=== PATIENT | female | born 1930 | race Caucasian/White ===

== ENCOUNTER 2017-02-10 16:17 | Inpatient (IN) | payer MEDICARE ==
[2017-02-10 17:47] LABS: Anisocytosis Slight; Basophils % (A) 0 %; CH 23.2; CHCM 28.7; Eosinophils # (A) 0.1 k/uL (0-0.7); Eosinophils % (A) 1 %; HCT 23.5 % (34.0-46.0); HDW 4.75; Hypochromasia Marked; Luc # (Auto) 0.19; Luc % (Auto) 2; Lymphocytes # (A) 1.1 k/uL (1.0-4.8); Lymphocytes % (A) 12 %; MCH 23.5 pg (25.0-35.0); MCV 80.6 fL (80.0-100.0); Mean Platelet Volume 9.4; Monocytes # (A) 1.1 k/uL (0-1.0); Monocytes % (A) 11 %; Neutrophils # (A) 6.9 k/uL (1.3-7.7); Neutrophils % (A) 74 %; Poikilocytosis Marked; RBC 2.92 m/uL (3.80-5.40); RDW 17.1 % (11.5-15.5); WBC 9.3 k/uL (3.8-10.6); WBC (Perox) 8.92
[2017-02-10 17:55] LABS: HGB 6.9 gm/dL (11.4-16.0); MCHC 29.2 g/dL (31.0-37.0)
[2017-02-10 18:03] LABS: Calcium 9.9 mg/dL (8.4-10.2)
[2017-02-10] MEDS ORDERED: ONDANSETRON 4 MG/2 ML VIAL IVP PRN (19:49)
[2017-02-10] MEDS ORDERED: NALOXONE 0.4 MG/ML 1 ML VIAL IV PRN (19:49)
[2017-02-10] MEDS ORDERED: DEXTROSE 5%-0.45% NACL 1,000 ML IV SCH (20:00)
--- NOTE | 2017-02-10 20:00 | ED ---
General Adult HPI - General Chief complaint: GI Bleed Stated complaint: GI Bleed Time Seen by Provider: 02/10/17 16:21 Source: patient, family, RN notes reviewed, old records reviewed Mode of arrival: EMS - History of Present Illness Initial comments: 86-year-old female presenting as a transfer from an outside hospital. Patient was found to be anemic with hemoglobin of 5.7 and Hemoccult positive. She does have history of A. fib and is currently on our requests. Patient was transferred for GI evaluation. Patient's initial complaint that brought her to the hospital was a fall with chest pain. Her son was helping her up from the bathroom floor and injured her anterior chest. X-rays obtained did not show any acute bony abnormality. Patient states she has noticed some dark stool over the last several days to week. Denies any other complaints. Denies typical chest pain, denies nausea vomiting or diarrhea. Has past medical history of dementia, hypertension and previous stroke. - Related Data Home Medications Medication Instructions Recorded Confirmed Amiodarone [Cordarone] 200 mg PO DAILY 02/10/17 02/10/17 Apixaban [Eliquis] 5 mg PO BID 02/10/17 02/10/17 Aspirin EC [Ecotrin Low Dose] 81 mg PO DAILY 02/10/17 02/10/17 Docusate [Colace] 100 mg PO DAILY PRN 02/10/17 02/10/17 Donepezil [Aricept] 5 mg PO HS 02/10/17 02/10/17 FLUoxetine HCL [PROzac] 10 mg PO DAILY 02/10/17 02/10/17 Levothyroxine Sodium [Synthroid] 50 mcg PO DAILY 02/10/17 02/10/17 Lisinopril-Hctz 20-12.5 mg 1 tab PO DAILY 02/10/17 02/10/17 [Zestoretic 20-12.5] Multivitamins, Thera [Multivitamin 1 tab PO DAILY 02/10/17 02/10/17 (formulary)] Propranolol (Unknown Dose) 1 tab PO BID 02/10/17 02/10/17 Topiramate [Topamax] 25 mg PO BID 02/10/17 02/10/17 metFORMIN HCL [Glucophage] 500 mg PO DAILY 02/10/17 02/10/17 Allergies Allergy/AdvReac Type Severity Reaction Status Date / Time No Known Allergies Allergy Verified 02/10/17 17:33 Review of Systems ROS Statement: Those systems with pertinent positive or pertinent negative responses have been documented in the HPI. ROS Other: All systems not noted in ROS Statement are negative. Past Medical History Past Medical History: Atrial Fibrillation, Coronary Artery Disease (CAD), Chest Pain / Angina, CVA/TIA, Diabetes Mellitus, Hypertension, Thyroid Disorder History of Any Multi-Drug Resistant Organisms: None Reported Past Psychological History: Depression Smoking Status: Never smoker Past Alcohol Use History: None Reported Past Drug Use History: None Reported General Exam General appearance: alert, in no apparent distress Head exam: Present: atraumatic, normocephalic Eye exam: Present: normal appearance, PERRL, EOMI ENT exam: Present: normal exam, mucous membranes moist Neck exam: Present: normal inspection Respiratory exam: Present: normal lung sounds bilaterally, rales. Absent: respiratory distress Cardiovascular Exam: Present: regular rate, normal rhythm GI/Abdominal exam: Present: soft. Absent: distended, tenderness Extremities exam: Present: normal capillary refill, pedal edema Neurological exam: Present: alert Psychiatric exam: Present: normal affect, normal mood Skin exam: Present: warm, dry Course Vital Signs 02/10/17 02/10/17 02/10/17 16:28 17:36 18:36 Temperature 97.0 F L Pulse Rate 53 L 52 L 52 L Respiratory 20 20 20 Rate Blood Pressure 130/73 187/77 137/69 O2 Sat by Pulse 99 98 97 Oximetry 02/10/17 19:19 Temperature Pulse Rate 54 L Respiratory 14 Rate Blood Pressure 145/65 O2 Sat by Pulse 92 L Oximetry Medical Decision Making - Medical Decision Making 86-year-old female presenting us transfer from an outside hospital with anemia hemoglobin 5.7. Patient received 1 unit prior to arrival. She is on adequate is for A. fib and stroke prophylaxis. Her vital signs have remained stable both in transport and from outside facility. Repeat labs reveal hemoglobin 6.9. Patient will receive an additional 1 unit of packed RBCs. Other laboratory studies reviewed from transferring facility were unremarkable. Patient is started on Protonix. She will be admitted for anemia and GI bleed. - Lab Data Result diagrams: 02/10/17 17:30 02/10/17 17:30 Lab Results 02/10/17 02/10/17 02/10/17 Range/Units 17:30 17:30 17:30 WBC 9.3 (3.8-10.6) k/uL RBC 2.92 L (3.80-5.40) m/uL Hgb 6.9 L* (11.4-16.0) gm/dL Hct 23.5 L (34.0-46.0) % MCV 80.6 (80.0-100.0) fL MCH 23.5 L (25.0-35.0) pg MCHC 29.2 L (31.0-37.0) g/dL RDW 17.1 H (11.5-15.5) % Plt Count 193 (150-450) k/uL Neutrophils % 74 % Lymphocytes % 12 % Monocytes % 11 % Eosinophils % 1 % Basophils % 0 % Neutrophils # 6.9 (1.3-7.7) k/uL Lymphocytes # 1.1 (1.0-4.8) k/uL Monocytes # 1.1 H (0-1.0) k/uL Eosinophils # 0.1 (0-0.7) k/uL Basophils # 0.0 (0-0.2) k/uL Hypochromasia Marked Poikilocytosis Marked Anisocytosis Slight Sodium 142 (137-145) mmol/L Potassium 4.0 (3.5-5.1) mmol/L Chloride 106 (98-107) mmol/L Carbon Dioxide 25 (22-30) mmol/L Anion Gap 11 mmol/L BUN 41 H (7-17) mg/dL Creatinine 1.80 H (0.52-1.04) mg/dL Est GFR (MDRD) Af Amer 32 (>60 ml/min/1.73 sqM) Est GFR (MDRD) Non-Af 27 (>60 ml/min/1.73 sqM) Glucose 120 H (74-99) mg/dL Calcium 9.9 (8.4-10.2) mg/dL Blood Type A Negative Blood Type Recheck CABO Indicated Antibody Screen NEGATIVE Crossmatch See Detail Spec Expiration Date 02/13/2017 - 2329 Disposition Clinical Impression: Melena, Upper gastrointestinal hemorrhage Disposition: ADMITTED IP TO THIS [facility] Condition: Stable Referrals: Manfred Gandara DO [Primary Care Provider] - 1-2 days Decision to Admit Reason: Admit from EC Decision Date: 02/10/17 Decision Time: 19:00
[2017-02-10 23:01] VITALS: BMI 35.4
[2017-02-10] MEDS ORDERED: MELATONIN 5 MG TABLET PO PRN (23:16)
[2017-02-11 06:09] LABS: Anisocytosis Slight; Basophils % (A) 1 %; CH 23.7; CHCM 29.1; Eosinophils # (A) 0.1 k/uL (0-0.7); Eosinophils % (A) 1 %; HDW 5.61; HGB 7.4 gm/dL (11.4-16.0); Hypochromasia Marked; Luc # (Auto) 0.27; Luc % (Auto) 4; Lymphocytes % (A) 14 %; MCH 24.1 pg (25.0-35.0); MCHC 29.6 g/dL (31.0-37.0); MCV 81.5 fL (80.0-100.0); Mean Platelet Volume 8.2; Monocytes # (A) 0.9 k/uL (0-1.0); Monocytes % (A) 13 %; Neutrophils % (A) 68 %; Poikilocytosis Marked; RBC 3.07 m/uL (3.80-5.40); RDW 16.1 % (11.5-15.5); WBC 7.3 k/uL (3.8-10.6); WBC (Perox) 7.33
[2017-02-11 06:19] LABS: INR 1.3 (<1.1); Prothrombin Time 12.6 sec (9.0-12.0)
[2017-02-11] MEDS: LEVOTHYROXINE 50 MCG TAB PO SCH ×2 (06:22→06:39)
[2017-02-11 06:24] LABS: Calcium 9.5 mg/dL (8.4-10.2); Potassium 3.9 mmol/L (3.5-5.1)
[2017-02-11] MEDS: LISINOPRIL-HCTZ 20-12.5 MG 1 EACH TAB PO SCH (08:12)
[2017-02-11] MEDS: AMIODARONE 200 MG TAB PO SCH (08:13)
[2017-02-11] MEDS: PANTOPRAZOLE 40 MG/10 ML VIAL IVP SCH (08:13)
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
[2017-02-12] MEDS: LEVOTHYROXINE 50 MCG TAB PO SCH (05:58)
[2017-02-12 06:33] LABS: Anisocytosis Slight; Basophils % (A) 0 %; CH 23.5; Eosinophils # (A) 0.1 k/uL (0-0.7); Eosinophils % (A) 1 %; HCT 26.1 % (34.0-46.0); HDW 5.39; HGB 7.8 gm/dL (11.4-16.0); Hypochromasia Marked; Luc # (Auto) 0.23; Luc % (Auto) 3; Lymphocytes % (A) 13 %; MCH 24.2 pg (25.0-35.0); MCHC 29.9 g/dL (31.0-37.0); MCV 81.1 fL (80.0-100.0); Mean Platelet Volume 9.1; Monocytes # (A) 0.9 k/uL (0-1.0); Monocytes % (A) 12 %; Neutrophils # (A) 5.6 k/uL (1.3-7.7); Neutrophils % (A) 71 %; Poikilocytosis Marked; RBC 3.22 m/uL (3.80-5.40); RDW 16.9 % (11.5-15.5); WBC 7.9 k/uL (3.8-10.6); WBC (Perox) 8.51
[2017-02-12 06:40] LABS: Calcium 9.3 mg/dL (8.4-10.2); Potassium 3.7 mmol/L (3.5-5.1); Total Bilirubin 1.5 mg/dL (0.2-1.3); Total Protein 5.7 g/dL (6.3-8.2)
[2017-02-12] MEDS: LISINOPRIL-HCTZ 20-12.5 MG 1 EACH TAB PO SCH (08:53)
[2017-02-12] MEDS: AMIODARONE 200 MG TAB PO SCH (08:53)
[2017-02-12] MEDS: PANTOPRAZOLE 40 MG/10 ML VIAL IVP SCH (08:53)
--- NOTE | 2017-02-12 09:05 | P.PN ---
Subjective Principal diagnosis: Anemia black colored bowel movements 86-year-old female transferred from another facility with anemia and blood in her bowel movements. No recurrent rectal bleeding. Denies abdominal pain. Antiplatelet medications on hold for history of atrial fibrillation. Hemoglobin 7.8 this morning. Received 1 unit of blood since admission. Objective - Vital Signs Vital signs: Vital Signs Temp 97.8 F 02/12/17 08:00 Pulse 52 L 02/12/17 08:00 Resp 18 02/12/17 08:00 BP 121/53 02/12/17 08:00 Pulse Ox 93 L 02/12/17 08:00 Intake & Output 02/11/17 02/12/17 02/12/17 18:59 06:59 18:59 Output Total 500 650 Balance -500 -650 Weight 91 kg 93.6 kg 93.6 kg Output: Urine 500 650 Other: Voiding Method Bedpan Bedpan Bedpan # Voids 1 1 - Exam General appearance: The patient is alert, oriented, in no acute distress. HET: Head is normocephalic and atraumatic. Pupils are equal and reactive. Oropharynx is clear without lesions. Neck: Supple without lymphadenopathy. Trachea midline. Heart: S1 S2. Regular rate and rhythm. Lungs: No crackles or wheezes are heard. Abdomen: Soft, nontender, nondistended with bowel sounds. No peritoneal signs. No palpable organomegaly or masses. Extremities: Normal skin color and turgor. No cyanosis, rash, ulceration, clubbing, or edema. Radial and pedal pulses are 2/4 bilaterally. Neurological: No focal deficits. Strength and sensation are grossly intact. - Labs CBC & Chem 7: 02/12/17 06:11 02/12/17 06:08 Labs: Abnormal Lab Results - Last 24 Hours (Table) 02/12/17 02/12/17 Range/Units 06:08 06:11 RBC 3.22 L (3.80-5.40) m/uL Hgb 7.8 L (11.4-16.0) gm/dL Hct 26.1 L (34.0-46.0) % MCH 24.2 L (25.0-35.0) pg MCHC 29.9 L (31.0-37.0) g/dL RDW 16.9 H (11.5-15.5) % Chloride 108 H (98-107) mmol/L BUN 35 H (7-17) mg/dL Creatinine 1.52 H (0.52-1.04) mg/dL Glucose 114 H (74-99) mg/dL Total Bilirubin 1.5 H (0.2-1.3) mg/dL Total Protein 5.7 L (6.3-8.2) g/dL Albumin 2.9 L (3.5-5.0) g/dL Assessment and Plan (1) Acute blood loss anemia Status: Acute (2) Melena Status: Acute (3) GI bleed Status: Acute Plan: 1. EGD colonoscopy scheduled tomorrow. 2. Clear liquid diet today. Nothing by mouth after midnight. 3. GI prophylaxis. Protonix 40 mg IV daily. Monitor CBC. The mason liner has discussed the risks, benefits and alternative therapies for the above-mentioned procedure and for both sedation/analgesia as well as necessary blood product administration, if indicated, as they pertain to this patient. The patient has indicated understanding and acceptance of the risks and procedures discussed. Assessment and plan of care discussed with Dr. Osorio
[2017-02-12] MEDS ORDERED: PEG 3350-NA SULF,BICARB,CL/KCL 4,000 ML BOTTLE PO ONE (15:00)
--- NOTE | 2017-02-12 16:09 | P.PN ---
Subjective 86-year-old female with history of atrial fibrillation currently maintained on anticoagulation was done the hospital with suspicion for GI bleed. Patient was noted to have Hemoccult-positive Patient states that she is normally able to ambulate with help. However has been laying in bed for the last 2 days Denies having any abdominal pain. Denies having any blurry vision ooziness chest pain difficulty breathing at this time Denies having a previous history of GI bleed. However patient has a hard time recalling some of her past medical history Patient also gets tearful that there is no hope for her life Patient was given a unit of PRBC repeat hemoglobin is greater than 7 g per DL No previous baseline hemoglobin is noted in our system. Patient is transferred from another facility 02/12/2017 Was able to be out of bed and ambulate to the restroom Denies having dizziness chest pain bloody bowel movements Objective - Vital Signs Vital signs: Vital Signs Temp 97.8 F 02/12/17 12:00 Pulse 50 L 02/12/17 12:00 Resp 16 02/12/17 12:00 BP 123/56 02/12/17 12:00 Pulse Ox 96 02/12/17 12:00 Intake & Output 02/11/17 02/12/17 02/12/17 18:59 06:59 18:59 Intake Total 120 Output Total 500 650 600 Balance -500 -650 -480 Weight 91 kg 93.6 kg 93.6 kg Intake: Oral 120 Output: Urine 500 650 600 Other: Voiding Method Bedpan Bedpan Bedpan # Voids 1 1 # Bowel Movements 0 - Exam Physical exam Gen. appearance oriented 3 in no distress Neck is supple no JVD Lungs good air entry clear to auscultation no rhonchi or wheezing Heart S1-S2 heard regular rate and rhythm no murmurs appreciated Abdomen is soft nontender no organomegaly bowel sounds are intact Neurologically cranial nerves II-12 grossly intact no focal motor or sensory deficits noted Resting tremor is appreciated Skin no abnormalities appreciated - Labs CBC & Chem 7: 02/12/17 06:11 02/12/17 06:08 Labs: Abnormal Lab Results - Last 24 Hours (Table) 02/12/17 02/12/17 Range/Units 06:08 06:11 RBC 3.22 L (3.80-5.40) m/uL Hgb 7.8 L (11.4-16.0) gm/dL Hct 26.1 L (34.0-46.0) % MCH 24.2 L (25.0-35.0) pg MCHC 29.9 L (31.0-37.0) g/dL RDW 16.9 H (11.5-15.5) % Chloride 108 H (98-107) mmol/L BUN 35 H (7-17) mg/dL Creatinine 1.52 H (0.52-1.04) mg/dL Glucose 114 H (74-99) mg/dL Total Bilirubin 1.5 H (0.2-1.3) mg/dL Total Protein 5.7 L (6.3-8.2) g/dL Albumin 2.9 L (3.5-5.0) g/dL Assessment and Plan Plan: 1 acute GI bleed in the patient on anticoagulation #2 history of atrial fibrillation #3 hypertension #4 dyslipidemia #5 acute kidney injury likely due to volume loss #6 parkinsonism features #7 depression #8 hypothyroidism #9 diabetes mellitus type 2 Plan Continue monitoring hemoglobin Patient had a bleed on apixiban To undergo endoscopy in the next 24 hours discussed with the patient to be discharged only on aspirin as patient does require significant assistance with ambulation at rest is a high risk for fall the risks of patient being on anticoagulation are higher than benefits of preventing a stroke with advanced age
[2017-02-13] MEDS: LEVOTHYROXINE 50 MCG TAB PO SCH ×2 (06:27→06:30)
[2017-02-13 06:37] LABS: Anisocytosis Slight; Basophils % (A) 0 %; CH 23.2; CHCM 29.2; Eosinophils # (A) 0.1 k/uL (0-0.7); Eosinophils % (A) 1 %; HDW 5.18; HGB 7.6 gm/dL (11.4-16.0); Hypochromasia Marked; Luc # (Auto) 0.24; Luc % (Auto) 3; Lymphocytes # (A) 0.9 k/uL (1.0-4.8); Lymphocytes % (A) 12 %; MCH 24.3 pg (25.0-35.0); MCHC 30.5 g/dL (31.0-37.0); MCV 79.6 fL (80.0-100.0); Monocytes # (A) 0.9 k/uL (0-1.0); Monocytes % (A) 12 %; Neutrophils # (A) 5.4 k/uL (1.3-7.7); Neutrophils % (A) 71 %; Poikilocytosis Marked; RBC 3.14 m/uL (3.80-5.40); RDW 17.5 % (11.5-15.5); WBC 7.6 k/uL (3.8-10.6); WBC (Perox) 7.76
[2017-02-13] MEDS ORDERED: PROPOFOL 10 MG/ML 20 ML VIAL IV ONE (09:31)
[2017-02-13] MEDS ORDERED: LACTATED RINGERS 1,000 ML IV ONE (09:34)
--- NOTE | 2017-02-13 10:12 | P.PCN ---
Date of Procedure: 02/13/17 Preoperative Diagnosis: Postoperative Diagnosis: Procedure(s) Performed: Procedure: 1. Esophagogastroduodenoscopy. 2. Colonoscopy and polypectomy. Preoperative diagnosis: GI bleeding. Postoperative diagnosis: 1. Hiatal hernia with no obvious esophagitis or complicated reflux disease. 2. No ulcers or potential sources of bleeding in the upper GI exam. 3. Mild sigmoid diverticulosis with no evidence of acute diverticulitis or strictures. 4. Small sigmoid polyp snared but no large polyps or cancer. 5. Low-grade internal hemorrhoids not bleeding at the time of this exam. Preparation: GoLYTELY prep. Sedation: Was provided by anesthesia. Brief clinical history: The patient is an 86-year old female who was transferrred from another hospital because of anemia and finding of blood in her stools. Was taken there by her son after a fall. Patient has history of Atrial fibrillation on eliquis. Has received 1 unit of packed RBCs that brought her Hb to around 7. Apparently has been having dark stools for few days, almost 1 week. No abdominal symptoms or UGI complaints. This evaluation is to assess for a source of bleeding. The details are summarized in the history and physical and dictated consultation. Procedure: With the patient on her left lateral decubitus position and after informed consent and adequate sedation, I passed the Olympus-GIF 160 video upper endoscope through the cricopharyngeus down the esophagus. GE junction was around 32 cm from the incisors. There was a hiatal hernia with sliding and paraesophageal component. The esophagus did not show any obvious esophagitis or complicated reflux disease. The endoscope was then passed into the stomach which was insufflated with air and inspected in detail including the retroflex view in the cardia. No obvious abnormalities were seen. Pyloric channel, duodenal bulb, post bulbar area and descending duodenum appeared within normal limits. There was no evidence of bleeding on the examination then the endoscope was withdrawn and I proceeded with the colonoscopy. Perianal area did not show any fissures or fistulas. There were no masses felt on digital rectal examination. The Olympus CFQ 160L video colonoscope was then inserted in the rectum in the usual fashion and advanced to the cecum. There was mild sigmoid diverticulosis with no evidence of acute diverticulitis or strictures. A small sigmoid polyp was seen and was snared and retrieved by suction but there were no large polyps or cancer. I retroflexed the endoscope in the rectum before the endoscope was withdrawn. Low-grade internal hemorrhoids were noted with no evidence of bleeding. The patient tolerated the procedure well. Plan: The patient was reassured. Will allow regular diet. Further plans can be made based on her course. I see no contraindication to resuming her anticoagulation based on the findings on this exam. Implants: Indications for Procedure: Operative Findings: Description of Procedure:
[2017-02-13] MEDS: LISINOPRIL-HCTZ 20-12.5 MG 1 EACH TAB PO SCH (12:11)
[2017-02-13] MEDS: AMIODARONE 200 MG TAB PO SCH (12:11)
[2017-02-13] MEDS: PANTOPRAZOLE 40 MG/10 ML VIAL IVP SCH (12:12)
--- NOTE | 2017-02-13 16:00 | P.PN ---
Subjective 86-year-old female with history of atrial fibrillation currently maintained on anticoagulation was done the hospital with suspicion for GI bleed. Patient was noted to have Hemoccult-positive Patient states that she is normally able to ambulate with help. However has been laying in bed for the last 2 days Denies having any abdominal pain. Denies having any blurry vision ooziness chest pain difficulty breathing at this time Denies having a previous history of GI bleed. However patient has a hard time recalling some of her past medical history Patient also gets tearful that there is no hope for her life Patient was given a unit of PRBC repeat hemoglobin is greater than 7 g per DL No previous baseline hemoglobin is noted in our system. Patient is transferred from another facility 02/12/2017 Was able to be out of bed and ambulate to the restroom Denies having dizziness chest pain bloody bowel movements 02/13/2017 Patient was seen status post EGD colonoscopy. Denies having any headaches blurry vision dizziness chest pain Objective - Vital Signs Vital signs: Vital Signs Temp 97.6 F 02/13/17 11:26 Pulse 56 L 02/13/17 11:26 Resp 20 02/13/17 11:26 BP 129/54 02/13/17 11:26 Pulse Ox 94 L 02/13/17 11:26 Intake & Output 02/12/17 02/13/17 02/13/17 18:59 06:59 18:59 Intake Total 120 840 590 Output Total 1200 Balance -1080 840 590 Weight 93.6 kg 88.6 kg Intake: IV 500 Oral 120 840 90 Output: Urine 1200 Other: Voiding Method Bedpan Bedside Commode # Voids 1 1 # Bowel Movements 0 1 - Exam Physical exam Gen. appearance oriented 3 in no distress Neck is supple no JVD Lungs good air entry clear to auscultation no rhonchi or wheezing Heart S1-S2 heard regular rate and rhythm no murmurs appreciated Abdomen is soft nontender no organomegaly bowel sounds are intact Neurologically cranial nerves II-12 grossly intact no focal motor or sensory deficits noted Resting tremor is appreciated Skin no abnormalities appreciated - Labs CBC & Chem 7: 02/13/17 05:58 02/12/17 06:08 Labs: Abnormal Lab Results - Last 24 Hours (Table) 02/13/17 Range/Units 05:58 RBC 3.14 L (3.80-5.40) m/uL Hgb 7.6 L (11.4-16.0) gm/dL Hct 25.0 L (34.0-46.0) % MCV 79.6 L (80.0-100.0) fL MCH 24.3 L (25.0-35.0) pg MCHC 30.5 L (31.0-37.0) g/dL RDW 17.5 H (11.5-15.5) % Lymphocytes # 0.9 L (1.0-4.8) k/uL Assessment and Plan Plan: 1 acute GI bleed in the patient on anticoagulation #2 history of atrial fibrillation #3 hypertension #4 dyslipidemia #5 acute kidney injury likely due to volume loss #6 parkinsonism features #7 depression #8 hypothyroidism #9 diabetes mellitus type 2 Plan To undergo endoscopy in the next 24 hours discussed with the patient to be discharged only on aspirin as patient does require significant assistance with ambulation at rest is a high risk for fall the risks of patient being on anticoagulation are higher than benefits of preventing a stroke with advanced age Potential discharge to rehab facility tomorrow Renal functions improved PT OT evaluation Continue on aspirin 325 mg discontinue anticoagulation completely Patient uses a walker is unsteady has a significant resting tremor is detrimental to continue the patient on anticoagulation without reversible agent We'll continue with aspirin 325 mg as a risks of fall would cause more damage than benefits of preventing a stroke in this patient with advanced age
[2017-02-14 01:17] VITALS: RESP 18
[2017-02-14] MEDS: LEVOTHYROXINE 50 MCG TAB PO SCH (06:31)
[2017-02-14] MEDS: AMIODARONE 200 MG TAB PO SCH (08:04)
[2017-02-14] MEDS: ASPIRIN 325 MG TAB PO SCH (08:04)
[2017-02-14] MEDS: PANTOPRAZOLE 40 MG/10 ML VIAL IVP SCH (08:04)
[2017-02-14] MEDS: LISINOPRIL-HCTZ 20-12.5 MG 1 EACH TAB PO SCH (08:04)
--- NOTE | 2017-02-14 09:47 | P.PN ---
Subjective Principal diagnosis: Anemia black colored bowel movements 86-year-old female transferred from another facility with anemia and blood in her bowel movements. No recurrent rectal bleeding. Denies abdominal pain. ststus post EGD colonoscopy yesterday with no evidence of active bleeding; mild sigmoid diverticulosis small sigmoid polyp snared low-grade internal hemorrhoids. Antiplatelet medications on hold for history of atrial fibrillation. Hemoglobin 7.6 this morning. Objective - Vital Signs Vital signs: Vital Signs Temp 98.1 F 02/14/17 08:00 Pulse 57 L 02/14/17 08:00 Resp 18 02/14/17 08:00 BP 112/67 02/14/17 08:00 Pulse Ox 94 L 02/14/17 08:00 Intake & Output 02/13/17 02/14/17 02/14/17 18:59 06:59 18:59 Intake Total 680 620 90 Balance 680 620 90 Weight 91.4 kg Intake: IV 500 Intake, IV Titration 0 Amount Lactated Ringers 1,000 ml 0 As IV .[facility] Rx#: [id number] Oral 180 620 90 Other: Voiding Method Bedside Commode # Voids 1 0 # Bowel Movements 1 - Exam General appearance: The patient is alert, oriented, in no acute distress. HET: Head is normocephalic and atraumatic. Pupils are equal and reactive. Oropharynx is clear without lesions. Neck: Supple without lymphadenopathy. Trachea midline. Heart: S1 S2. Regular rate and rhythm. Lungs: No crackles or wheezes are heard. Abdomen: Soft, nontender, nondistended with bowel sounds. No peritoneal signs. No palpable organomegaly or masses. Extremities: Normal skin color and turgor. No cyanosis, rash, ulceration, clubbing, or edema. Radial and pedal pulses are 2/4 bilaterally. Neurological: No focal deficits. Strength and sensation are grossly intact. - Labs CBC & Chem 7: 02/13/17 05:58 02/12/17 06:08 Assessment and Plan (1) GI bleed Narrative/Plan: Status post EGD colonoscopy with no evidence of active bleeding findings of sigmoid diverticular disease internal hemorrhoids and snare sigmoid polypectomy Status: Acute (2) Acute blood loss anemia Status: Acute (3) Melena Status: Acute Plan: 1. Regular diet. Discharge planning per medicine. May resume antiplatelet medications per medicine's evaluation. We'll sign off. Assessment and plan of care discussed with Dr. Osorio.
--- NOTE | 2017-02-14 22:14 | XR ---
EXAMINATION TYPE: XR chest 1V portable DATE OF EXAM: 02/14/2017 COMPARISON: NONE HISTORY: Placement TECHNIQUE: Single frontal view of the chest is obtained. FINDINGS: There is obscuration of the pulmonary vasculature by a reticular pattern of increased dens ity throughout the lungs. This could be a chronic interstitial lung pattern, but differential also in cludes interstitial phase pulmonary edema. Cardiac silhouette is moderately enlarged. Small pleural effusions are evident bilaterally, with partial bibasilar airlessness. There is no pneumothorax. No other abnormal gas collections. Bones and soft tissues are unremarkable. IMPRESSION: 1. Interstitial pulmonary pattern as discussed. 2. Small bilateral pleural effusions and bibasilar partial atelectasis.
[2017-02-15] MEDS: LEVOTHYROXINE 50 MCG TAB PO SCH (06:30)
[2017-02-15 06:47] LABS: Anisocytosis Slight; Basophils % (A) 0 %; CH 23.4; CHCM 28.4; Eosinophils # (A) 0.2 k/uL (0-0.7); Eosinophils % (A) 2 %; HCT 26.5 % (34.0-46.0); HDW 4.79; HGB 7.7 gm/dL (11.4-16.0); Hypochromasia Marked; Luc % (Auto) 3; Lymphocytes # (A) 0.9 k/uL (1.0-4.8); Lymphocytes % (A) 12 %; MCHC 29.1 g/dL (31.0-37.0); MCV 82.5 fL (80.0-100.0); Mean Platelet Volume 7.5; Monocytes # (A) 0.7 k/uL (0-1.0); Monocytes % (A) 10 %; Neutrophils # (A) 5.5 k/uL (1.3-7.7); Neutrophils % (A) 73 %; Poikilocytosis Marked; RBC 3.21 m/uL (3.80-5.40); WBC 7.5 k/uL (3.8-10.6); WBC (Perox) 7.91
[2017-02-15 07:07] LABS: Calcium 9.1 mg/dL (8.4-10.2); Potassium 3.9 mmol/L (3.5-5.1)
--- NOTE | 2017-02-15 08:44 | PN ---
DATE OF SERVICE: 02/14/2017 INTERVAL HISTORY: Ms. Montaño is an 86-year-old female with known history of atrial fibrillation, on anticoagulation with Eliquis, was admitted to the hospital for possible GI bleed. Patient was found to have ( ) positive. Patient underwent EGD and a colonoscopy, showed no active bleeding, noted diverticulosis. Otherwise, the hemoglobin is stable and anticoagulation has been held due to history of falls as well as current GI bleed. Patient was given a unit of PRBC on admission and current hemoglobin is 7.6 today. It has been stable as compared to 7.8 yesterday. On admission hemoglobin was 6.9. REVIEW OF SYSTEMS: Patient currently denied any complaints of chest pain or short of breath. No nausea, vomiting, abdominal pain. Patient seems depressed. All other view of systems negative except for above. Current medications include Cordarone, aspirin, lisinopril, hydrochlorothiazide , levothyroxine, melatonin, Naloxone, Zofran and Protonix. PHYSICAL EXAMINATION: An 86-year-old female, lying in the bed, awake, alert, oriented x3. Otherwise, patient is a poor historian and no apparent distress noted. VITALS: Blood pressure is 116/52, pulse is 58, respiratory rate 18, temperature afebrile. Pulse ox 97% on room air. HEENT: Atraumatic, normocephalic. Neck is supple, no JVD. CVS EXAM: S1, S2 heard. No murmurs, no gallop, no rub. LUNGS: Bilateral air entry is present. No wheezing, no crackles, nonlabored breathing. Abdomen is soft, nontender. Bowel sounds are heard. P[employer] H[employer] MA[employer]GER: Awake, alert, oriented x2 to3, able to move all her extremities. EXTREMITIES: No edema, pulses palpable bilaterally, no clubbing or cyanosis. PSYCHIATRIC: Cooperative. LABORATORY DATA: WBC is 7.6, hemoglobin is 7.6, platelets 164, RDW is 17.5, MCV is 79.6 and HbA1c 6.0. IMPRESSION: 1. Acute gastrointestinal bleed, status post EGD and colonoscopy showed diverticulosis, no active bleeding was noted. 2. Acute blood loss anemia secondary to gastrointestinal bleed. 3. History of atrial fibrillation, currently on anticoagulation with Eliquis which has been held at this time. 4. Hypertension. 5. Hyperlipidemia. 6. Acute kidney injury due to volume loss, improved now. 7. Parkinsonism features. 8. Depression. 9. Hypothyroidism. 10. Diabetes type 2. DISCUSSION AND PLAN: Patient is being continued on Protonix at this time, anticoagulation has been held. Patient currently requires secondary assistance with ambulation, at rest because of high risk for fall and risk for patient being anticoagulation are higher than benefits of preventing stroke with the advanced age. Will continue the PT, OT and follow up renal function and anticipate discharge to extended are facility tomorrow. KAYLEN
[2017-02-15] MEDS: AMIODARONE 200 MG TAB PO SCH (09:32)
[2017-02-15] MEDS: ASPIRIN 325 MG TAB PO SCH (09:32)
[2017-02-15] MEDS: LISINOPRIL-HCTZ 20-12.5 MG 1 EACH TAB PO SCH (09:32)
[2017-02-15] MEDS: PANTOPRAZOLE 40 MG/10 ML VIAL IVP SCH (09:32)
[2017-02-15 14:05] VITALS: BP 142/66; PULSE 58; TEMP 97.2
--- NOTE | 2017-02-15 14:57 | DS ---
DATE OF ADMISSION: 02/10/2017 DATE OF DISCHARGE: 02/15/2017 CONSULTATION: GI consultation. PROCEDURES: EGD and colonoscopy. DISCHARGE DIAGNOSES: 1. Acute gastrointestinal bleed, status post EGD and colonoscopy showed diverticulosis, no active bleeding noted. 2. Acute blood loss anemia secondary to GI bleed, hemoglobin is stable at this time. 3. History of atrial fibrillation, on anticoagulation with Eliquis which has been held due to gastrointestinal bleed as well as frequent falls. Anticoagulation can be discontinued at this time and will continue with the aspirin only 325 mg daily. 4. Hypertension, controlled. 5. Hyperlipidemia. 6. Acute kidney injury, secondary to volume loss, improved now. 7. Parkinsonism features. 8. Depression. 9. Hypothyroidism. 10. Diabetes type 2. HOSPITAL COURSE: Ms. Montaño is an 86-year-old female with known history of atrial fibrillation on anticoagulation with Eliquis, was admitted to the hospital for a GI bleed. Patient was found to have a Hemoccult positive. Patient was seen by GI and EGD and colonoscopy were done, showed no active bleeding, showed diverticulosis. Otherwise, patient had 1 unit of PRBC on admission. Hemoglobin improved to 7.7 today. Initially, the hemoglobin was 6.9 on admission. Patient's anticoagulation has been held and currently patient is atraumatic now. Denied any active bleeding noted. Otherwise, the patient is slated to be discharged back to extended care facility and continue with aspirin only. Patient's blood sugar is fairly controlled with BUN of 6.0 and patient was also having increased renal function on admission with creatinine level of 1.8 which has been improved to 1.4 now. WBC count is stable. Otherwise, patient is stable to be discharged home. DISCHARGE PHYSICAL EXAMINATION: An 86-year-old female sitting on the bed comfortably. Awake, alert, oriented x2 to 3. Patient i no apparent distress. VITALS: Blood pressure is 144/71, pulse is 84, respirations 18, temperature afebrile, pulse ox 90% on room air. HEENT: Atraumatic, normocephalic. Neck is supple, no JVD. CVS EXAM: S1, S2 heard, no murmurs, no gallop. LUNGS: Bilateral air entry is present. No wheeze, no crackles. Abdomen is soft. COAGULATOR: Awake, alert x 2 to 3. Able to move all her extremities. EXTREMITIES: No edema. Pulses palpable bilaterally. PSYCHIATRIC: Cooperative. Laboratory data reviewed. Hemoglobin 7.7, MCV 82.5 and RDW 18. Platelet count is 144. Discharge medications include: 1. Amiodarone 200 mg p.o. daily. 2. Docusate 100 mg p.o. daily p.r.n. for constipation. 3. Aricept 5 mg p.o. q.h.s. 4. Prozac 10 mg p.o. daily. 5. Levothyroxine 50 mcg p.o. daily. 6. Lisinopril-hydrochlorothiazide 20-12.5 mg 1 tablet p.o. daily. 7. Multivitamin 1 tablet p.o. daily. 8. Topamax 25 mg p.o. b.i.d. 9. Metformin 500 mg p.o. daily. 10. Propranolol 120 mg p.o. b.i.d. 11. Aspirin 325 mg p.o. daily. Patient will be discharged to extended care facility in stable condition. Activity as tolerated and heart-health diet. Follow with Dr. Manfred Gandara in 1 to 2 days. Time taken more than 35 minutes including consulting the patient and coordinating care. [facility]AMPUSClifford
== END 2017-02-15 16:09 | DRG 378 ==
LOC: EC 16:17 → 6SEL 19:49
PROVIDERS: ADMIT Hospitalist; ATTEND Hospitalist
PROC: 30233N1 Transfusion of Nonautologous Red Blood Cells into Peripheral Vein, Percutaneous Approach (ICD-10-PCS; principal; 2017-02-10)
PROC: 0DBN8ZX Excision of Sigmoid Colon, Via Natural or Artificial Opening Endoscopic, Diagnostic (ICD-10-PCS; 2017-02-13)
PROC: 0DJ08ZZ Inspection of Upper Intestinal Tract, Via Natural or Artificial Opening Endoscopic (ICD-10-PCS; 2017-02-13 09:00)
DX: K92.1 Melena (principal); D62 Acute posthemorrhagic anemia; N17.9 Acute kidney failure, unspecified; I48.91 Unspecified atrial fibrillation; G20 Parkinson's disease; E11.9 Type 2 diabetes mellitus without complications; K57.30 Diverticulosis of large intestine without perforation or abscess without bleeding; E78.5 Hyperlipidemia, unspecified; E03.9 Hypothyroidism, unspecified; F32.9 Major depressive disorder, single episode, unspecified; K64.8 Other hemorrhoids; K44.9 Diaphragmatic hernia without obstruction or gangrene; I10 Essential (primary) hypertension; D12.5 Benign neoplasm of sigmoid colon; R29.6 Repeated falls; Z91.81 History of falling; I25.10 Atherosclerotic heart disease of native coronary artery without angina pectoris; Z87.891 Personal history of nicotine dependence; Z86.73 Personal history of transient ischemic attack (TIA), and cerebral infarction without residual deficits; Z79.01 Long term (current) use of anticoagulants; Z79.82 Long term (current) use of aspirin; Z79.84 Long term (current) use of oral hypoglycemic drugs; Z79.899 Other long term (current) drug therapy
CPT/HCPCS: 36415; 36430; 43235; 45385; 71010; 80048; 80053; 83036; 85025; 85610; 86850; 86900; 86901; 86920; 88305; 99285

== ENCOUNTER 2017-04-15 12:07 | Emergency (ER) | payer MEDICARE ==
[~2017-04-15 12:07] MED LIST: SODIUM CHLORIDE 0.9% 500 ML BAG ONE
[2017-04-15] MEDS ORDERED: SODIUM CHLORIDE 0.9% 1,000 ML BAG ONE (12:33)
[2017-04-15] MEDS ORDERED: PANTOPRAZOLE 40 MG/10 ML VIAL IVP STA (12:40)
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
[2017-04-15 13:28] LABS: RBC 4.28 m/uL (3.80-5.40); WBC 7.9 k/uL (3.8-10.6)
[2017-04-15 13:30] LABS: CH 26.8; CHCM 29.5; MCHC 30.7 g/dL (31.0-37.0); MCV 91.1 fL (80.0-100.0); Magnesium 1.6 mg/dL (1.6-2.3); Mean Platelet Volume 9.5; RDW 22.8 % (11.5-15.5)
[2017-04-15 13:31] LABS: Anisocytosis Moderate; Basophils % (A) 1 %; Eosinophils % (A) 3 %; Hypochromasia Marked; Lymphocytes % (A) 14 %; Microcytosis Slight; Monocytes % (A) 12 %; Neutrophils % (A) 68 %
[2017-04-15 13:32] LABS: Basophils # (A) 0.1 k/uL (0-0.2); Eosinophils # (A) 0.2 k/uL (0-0.7); Luc # (Auto) 0.19; Luc % (Auto) 2; Lymphocytes # (A) 1.1 k/uL (1.0-4.8); Monocytes # (A) 0.9 k/uL (0-1.0); Neutrophils # (A) 5.4 k/uL (1.3-7.7)
[2017-04-15 13:47] LABS: INR 1.2 (<1.2); Partial Thromboplastin Time 23.4 sec (22.0-30.0)
[2017-04-15 14:14] VITALS: BP 124/61; PULSE 63; RESP 17; TEMP 97.6
== END 2017-04-15 15:23 | disposition home or self-care (01) ==
LOC: EC 12:07
DX: K92.2 Gastrointestinal hemorrhage, unspecified (principal); I48.91 Unspecified atrial fibrillation; I25.10 Atherosclerotic heart disease of native coronary artery without angina pectoris; E11.9 Type 2 diabetes mellitus without complications; I10 Essential (primary) hypertension; E07.9 Disorder of thyroid, unspecified; F32.9 Major depressive disorder, single episode, unspecified; Z87.891 Personal history of nicotine dependence; Z79.84 Long term (current) use of oral hypoglycemic drugs; Z79.82 Long term (current) use of aspirin; Z79.899 Other long term (current) drug therapy
CPT/HCPCS: 36415; 83690; 83735; 84484; 85025; 85610; 85730; 86850; 86900; 86901; 96361; 96374; 99285

== ENCOUNTER 2017-05-21 12:11 | Inpatient (IN) | payer MEDICARE ==
[2017-05-21 13:06] LABS: Calcium 10.9 mg/dL (8.4-10.2); INR 1.3 (<1.2); Magnesium 1.6 mg/dL (1.6-2.3); Partial Thromboplastin Time 23.8 sec (22.0-30.0); Phosphorus 2.4 mg/dL (2.5-4.5); Potassium 3.1 mmol/L (3.5-5.1); Prothrombin Time 12.9 sec (9.0-12.0); Total Bilirubin 1.6 mg/dL (0.2-1.3); Total Protein 6.1 g/dL (6.3-8.2)
--- NOTE | 2017-05-21 13:09 | XR ---
EXAMINATION TYPE: XR chest 2V DATE OF EXAM: 05/21/2017 COMPARISON: 02/14/2017 HISTORY: Weakness TECHNIQUE: Frontal and lateral views of the chest are obtained. FINDINGS: Large retrocardiac density relates to at least partial intrathoracic stomach. Scattered ar eas of linear bibasilar atelectasis are present. No pleural effusion or focal consolidation is seen. There is generalized osseous demineralization and degenerative changes of the osseous structures. Car diomegaly is present. IMPRESSION: Multifocal linear bibasilar subsegmental atelectasis. No focal consolidation. Partial in trathoracic stomach
--- NOTE | 2017-05-21 13:12 | CT ---
EXAMINATION TYPE: CT brain wo con DATE OF EXAM: 05/21/2017 COMPARISON: NONE INDICATION: ams, weakness DLP: 1201 mGycm, Automated exposure control for dose reduction was used. CONTRAST: None CT of the brain is performed utilizing 3 mm thick sections through the posterior fossa and 3 mm thick sections through the remaining calvarium. Study is performed within 24 hours of arrival to the hosp [facility]. No abnormal hyperdensity is present to suggest an acute intracranial hemorrhage. No mass lesion is evident. No acute infarcts are evident. There is an old infarct through the right watershed region. Periventri cular white matter hypodensity is present. Ventricles and sulci are prominent for the patient age. Hyperostosis frontalis internus is present. Paranasal sinuses and mastoid air cells within the [id number] are clear. 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 2. Periventricular white matter ischemic changes
[2017-05-21 13:24] LABS: Anisocytosis Slight; Basophils # (A) 0.1 k/uL (0-0.2); Basophils % (A) 0 %; CH 29.2; CHCM 30.7; Eosinophils % (A) 0 %; HCT 44.5 % (34.0-46.0); HDW 2.46; HGB 13.4 gm/dL (11.4-16.0); Hypochromasia Slight; Luc % (Auto) 1; Lymphocytes # (A) 0.6 k/uL (1.0-4.8); Lymphocytes % (A) 4 %; MCH 28.7 pg (25.0-35.0); MCHC 30.1 g/dL (31.0-37.0); MCV 95.4 fL (80.0-100.0); Macrocytosis Slight; Mean Platelet Volume 8.9; Monocytes # (A) 1.4 k/uL (0-1.0); Monocytes % (A) 9 %; Neutrophils # (A) 12.6 k/uL (1.3-7.7); Neutrophils % (A) 85 %; RBC 4.67 m/uL (3.80-5.40); RDW 19.5 % (11.5-15.5); WBC 14.8 k/uL (3.8-10.6); WBC (Perox) 14.15
[2017-05-21 13:28] LABS: Creatine Kinase MB 1.1 ng/mL (0.0-2.4); Troponin I 0.023 ng/mL (0.000-0.034)
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
[2017-05-21] MEDS ORDERED: ASPIRIN 325 MG TAB PO STA (14:48)
[2017-05-21] MEDS ORDERED: POTASSIUM BICARB-CITRIC ACID 25 MEQ TABLET.EFF PO STA (14:50)
[2017-05-21] MEDS: SODIUM CHLORIDE 0.9% 1,000 ML IV SCH ×2 (15:21→23:00)
[2017-05-21] MEDS: POTASSIUM CHLORIDE 10 MEQ, LIDOCAINE 2% INJ 10 MG in SODIUM CHLORIDE 0.9% 100 ML IVPB SCH ×4 (15:21→21:33)
[2017-05-21 15:58] LABS: Appearance,Urine Clear (Clear); Bacteria,Urine Rare /hpf; Bilirubin,Urine 1+ (Negative); Glucose,Urine (UA) Negative (Negative); Ketones,Urine Negative (Negative); Leukocyte Esterase,Urine Small (Negative); Mucus,Urine Rare /hpf; Nitrite,Urine Negative (Negative); PH, Urine 5.5 (5.0-8.0); Particle Count 5354; Protein,Urine 1+ (Negative); RBC,Urine 1 /hpf (0-5); Specific Gravity,Urine 1.022 (1.001-1.035); Squamous Epithelial Cell,Urine 1 /hpf (0-4); UA Billing (MACRO vs. MICRO) MICRO; Urobilinogen,Urine <2.0 mg/dL (<2.0); WBC,Urine 9 /hpf (0-5)
[2017-05-21 17:38] LABS: Glucose,Whole Blood 97 mg/dL (75-99)
[2017-05-21 18:31] VITALS: BMI 33.3
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
[2017-05-21 20:51] LABS: Glucose,Whole Blood 85 mg/dL (75-99)
[2017-05-21] MEDS ORDERED: Magnesium Replacement Protocol 1 EACH MISC MISCELLANE PRN (22:09)
[2017-05-21] MEDS ORDERED: DOCUSATE 100 MG CAP PO PRN (22:11)
[2017-05-21] MEDS: MAGNESIUM SULFATE-D5W PMX 1 GM in DEXTROSE/WATER 1 100ML.BAG IVPB SCH (23:00)
[2017-05-22] MEDS: MAGNESIUM SULFATE-D5W PMX 1 GM in DEXTROSE/WATER 1 100ML.BAG IVPB SCH (00:49)
[2017-05-22 05:42] LABS: Glucose,Whole Blood 85 mg/dL (75-99)
[2017-05-22 06:06] LABS: Anisocytosis Moderate; Basophils # (A) 0.1 k/uL (0-0.2); Basophils % (A) 0 %; CH 30.1; CHCM 31.6; Eosinophils # (A) 0.1 k/uL (0-0.7); Eosinophils % (A) 0 %; HCT 37.6 % (34.0-46.0); HDW 2.56; HGB 11.5 gm/dL (11.4-16.0); Luc # (Auto) 0.25; Luc % (Auto) 2; Lymphocytes # (A) 1.1 k/uL (1.0-4.8); Lymphocytes % (A) 7 %; MCH 29.4 pg (25.0-35.0); MCHC 30.6 g/dL (31.0-37.0); MCV 95.8 fL (80.0-100.0); Macrocytosis Slight; Mean Platelet Volume 9.2; Monocytes # (A) 1.4 k/uL (0-1.0); Monocytes % (A) 9 %; Neutrophils # (A) 12.5 k/uL (1.3-7.7); Neutrophils % (A) 81 %; RBC 3.92 m/uL (3.80-5.40); RDW 21.2 % (11.5-15.5); WBC 15.4 k/uL (3.8-10.6)
[2017-05-22] MEDS: INSULIN LISPRO (humaLOG) 300 UNIT/3 ML VIAL SQ SCH ×4 (06:26→21:42)
[2017-05-22] MEDS: LEVOTHYROXINE 50 MCG TAB PO SCH (06:27)
[2017-05-22 06:28] LABS: Calcium 9.7 mg/dL (8.4-10.2); Magnesium 2.1 mg/dL (1.6-2.3); Potassium 3.7 mmol/L (3.5-5.1)
[2017-05-22 07:47] LABS: Hemoglobin A1C 5.3 % (4.2-6.1)
[2017-05-22] MEDS: TOPIRAMATE 25 MG TAB PO SCH ×2 (08:02→20:36)
[2017-05-22] MEDS: FLUoxetine HCL 10 MG CAP PO SCH (08:02)
[2017-05-22] MEDS: AMIODARONE 200 MG TAB PO SCH (08:02)
[2017-05-22] MEDS: MULTIVITAMINS, THERA 1 EACH TAB PO SCH (08:02)
[2017-05-22] MEDS: PROPRANOLOL LA 60 MG CAP.SA.24H PO SCH ×2 (08:02→20:36)
[2017-05-22] MEDS: ASPIRIN 325 MG TAB PO SCH (08:02)
--- NOTE | 2017-05-22 10:59 | ECHOF ---
Referral Reason:tia MEASUREMENTS -------- HEIGHT: 162.6 cm WEIGHT: 84.4 kg BP: IVSd: 1.2 cm (0.6 - 1.1) LVIDd: 4.2 cm (3.9 - 5.3) LVPWd: 1.1 cm (0.6 - 1.1) IVSs: 1.5 cm LVIDs: 3.0 cm LVPWs: 1.1 cm LAESV Index (A-L): 49.96 ml/m MV EXCURSION: 22.560 mm (> 18.000) MV EF SLOPE: 45 mm/s (70 - 150) EPSS: 0.5 cm MV E Gm: 1.20 m/s MV DecT: 430 ms MV A Gm: 0.69 m/s MV E/A Ratio: 1.75 AV maxP.00 mmHg AV meanP.44 mmHg RAP: 5.00 mmHg RVSP: 28.50 mmHg FINDINGS -------- Sinus rhythm. This was a technically adequate study. The left ventricular size is normal. There is mild concentric left ventricular hypertrophy. Overall left ventricular systolic function is low-normal with, an EF between 50 - 55 %. The right ventricle is normal in size. LA is severely dilated >40 ml/m2 The right atrial size is normal. There is mild aortic stenosis present. Peak/mean gradient across the Aortic Valve is 23.00mmHg / 12.44mmHg. Moderate mitral annular calcification present. [id number] mitral regurgitation is present. Mild tricuspid regurgitation present. There is no evidence of pulmonary hypertension. The right ventricular systolic pressure, as measured by Doppler, is 28.50mmHg. Trace/mild (physiologic) pulmonic regurgitation. The aortic root size is normal. There is no pericardial effusion. CONCLUSIONS -------- 1. The left ventricular size is normal. 2. There is no evidence of pulmonary hypertension. 3. The right ventricular systolic pressure, as measured by Doppler, is 28.50mmHg. 4. Trace/mild (physiologic) pulmonic regurgitation. 5. The aortic root size is normal. 6. There is no pericardial effusion. 7. There is mild concentric left ventricular hypertrophy. 8. Overall left ventricular systolic function is low-normal with, an EF between 50 - 55 %. 9. LA is severely dilated >40 ml/m2 10. There is mild aortic stenosis present. 11. Peak/mean gradient across the Aortic Valve is 23.00mmHg / 12.44mmHg. 12. Moderate mitral annular calcification present. 13. [id number] mitral regurgitation is present. 14. Mild tricuspid regurgitation present. HORTICULTURAL THERAPIST: Margaux Posada RDCS
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
--- NOTE | 2017-05-22 13:46 | US ---
EXAMINATION TYPE: US carotid duplex BILAT DATE OF EXAM: 05/22/2017 COMPARISON: NONE CLINICAL HISTORY: Fall and collapse. Fall and collapse EXAM MEASUREMENTS: RIGHT: Peak Systolic Velocity (PSV) cm/sec ----- Right CCA: 54.7 ----- Right ICA: 47.3 ----- Right ECA: 55.9 ICA/CCA ratio: 0.9 RIGHT: End Diastole cm/sec ----- Right CCA: 5.8 ----- Right ICA: 9.8 ----- Right ECA: 0.0 LEFT: Peak Systolic Velocity (PSV) cm/sec ----- Left CCA: 41.1 ----- Left ICA: 54.0 ----- Left ECA: 71.1 ICA/CCA ratio: 1.3 LEFT: End Diastole cm/sec ----- Left CCA: 6.5 ----- Left ICA: 4.6 ----- Left ECA: 0.0 VERTEBRALS (direction of flow): Right Vertebral: Antegrade Left Vertebral: Antegrade Rhythm: Normal No elevated velocities, no significant stenosis. Atheromatous plaquing is noted in the right carotid bulb. This is hard plaque with posterior shadowing. Some turbulent flow with filling of the acoustic windows present on the right. Atheromatous plaquing is at the left carotid bifurcation without signif icant flow-limiting stenosis. There is a large plaque within the left carotid bulb with posterior sha dowing. Turbulent flow fills the acoustic window. Significant elevated velocity however is not identi fied. IMPRESSION: 1. No significant flow-limiting stenosis. Atheromatous plaquing is present bilaterally. Criteria for Assigning % of Stenosis / Diameter reduction (Estimation based on the indirect measurements of the internal carotid artery velocities (ICA PSV). 1. Normal (no stenosis)=ICA PSV < 125 cm/s: ratio < 2.0: ICA EDV<40 cm/s. 2. Less than 50% stenosis=ICA PSV < 125 cm/s: ratio < 2.0: ICA EDV<40 cm/s. 3. 50 to 69% stenosis=ICA PSV of 125 to 230 cm/s: ration 2.0 ? 4.0: ICA EDV 40-100 cm/s. 4. Greater than 70% stenosis to near occlusion= ICA PSV > 230 cm/s: ratio > 4.0: ICA EDV > 100 cm/s. 5. Near occlusion= ICA PSV velocities may be low or undetectable: variable ratio and ICA EDV. 6. Total occlusion=unable to detect flow.
[2017-05-22] MEDS: SODIUM CHLORIDE 0.9% 1,000 ML IV SCH (13:58)
[2017-05-22] MEDS ORDERED: Potassium Replacement Protocol 1 EACH MISC MISCELLANE PRN (13:58)
[2017-05-22] MEDS ORDERED: ACETAMINOPHEN TAB 325 MG TAB PO PRN (13:59)
[2017-05-22] MEDS: POTASSIUM CHLORIDE 10 MEQ, LIDOCAINE 2% INJ 10 MG in SODIUM CHLORIDE 0.9% 100 ML IV SCH ×2 (14:45→15:49)
[2017-05-22 16:49] LABS: Glucose,Whole Blood 115 mg/dL (75-99)
--- NOTE | 2017-05-22 20:24 | P.PN ---
Subjective Progress Note Date: 05/22/17 The patient is an 87-year-old woman who presents to the hospital after fall and increased weakness in the right leg. The patient has no new complaints. According to the record the family reports patient has been having increased right-sided weakness. She is able to lift all 4 extremities up against gravity. She denied any focal back pain. She denies any other neurologic complaint. She lives with her son. Objective - Vital Signs Vital signs: Vital Signs Temp 96.1 F L 05/22/17 19:37 Pulse 50 L 05/22/17 19:37 Resp 16 05/22/17 19:37 BP 119/82 05/22/17 19:37 Pulse Ox 94 L 05/22/17 19:37 Intake & Output 05/22/17 05/22/17 05/23/17 06:59 18:59 06:59 Intake Total 1700 920 Output Total 1 Balance 1699 920 Weight 84.5 kg Intake: IV 1400 800 Magnesium Sulfate-D5w Pmx 200 1 gm In Dextrose/Water 1 100ml.bag @ 100 mls/hr IVPB Q1H [facility] Rx#: [id number] Potassium Chloride 10 meq 100 Lidocaine 2% Inj 10 mg In Sodium Chloride 0.9% 100 ml @ 100 mls/hr IVPB Q1HR [facility] Rx#:[id number] Sodium Chloride 0.9% 1, 1100 800 000 ml @ 100 mls/hr IV . Q10H [facility] Rx#:[id number] Intake, IV Titration 300 Amount Magnesium Sulfate-D5w Pmx 100 1 gm In Dextrose/Water 1 100ml.bag @ 100 mls/hr IVPB Q1H [facility] Rx#: [id number] Potassium Chloride 10 meq 200 Lidocaine 2% Inj 10 mg In Sodium Chloride 0.9% 100 ml @ 100 mls/hr IVPB Q1HR [facility] Rx#:[id number] Oral 120 Output: Urine/Stool Mix 1 Other: Voiding Method Bedpan Bedpan Bedside Commode # Voids 1 3 # Bowel Movements 1 - Constitutional General appearance: Present: cooperative - EENT Eyes: Present: EOMI, PERRLA ENT: Present: hard of hearing - Respiratory Respiratory: bilateral: CTA - Cardiovascular Rhythm: regular - Neurologic Neurologic Comment(s): Mental status: She is sleeping but easily arousable. She is cooperative and answers questions appropriately. There is no a aphasia or dysarthria Neurologic: Present: CNII-XII intact - Musculoskeletal Musculoskeletal: Present: generalized weakness, right sided weakness (Weaker on the right leg compared to the left) - Labs CBC & Chem 7: 05/22/17 05:18 05/22/17 05:18 Labs: Abnormal Lab Results - Last 24 Hours (Table) 05/22/17 05/22/17 05/22/17 Range/Units 05:18 05:18 16:43 WBC 15.4 H (3.8-10.6) k/uL MCHC 30.6 L (31.0-37.0) g/dL RDW 21.2 H (11.5-15.5) % Plt Count 115 L (150-450) k/uL Neutrophils # 12.5 H (1.3-7.7) k/uL Monocytes # 1.4 H (0-1.0) k/uL BUN 32 H (7-17) mg/dL Creatinine 1.93 H (0.52-1.04) mg/dL POC Glucose (mg/dL) 115 H (75-99) mg/dL Microbiology - Last 24 Hours (Table) 05/21/17 15:36 Urine Culture - Preliminary Urine,Voided Assessment and Plan (1) Cerebrovascular accident Current Visit: Yes Status: Acute SNOMED Code(s): 860623551 (2) History of fall Current Visit: Yes Status: Acute SNOMED Code(s): 219611021 Plan: The patient is a 79-year-old woman with no known past history of stroke who presents with right leg weakness. The patient had a CT which showed evidence of a remote right watershed area infarct. The patient had a fall today due to weakness in the right leg. Neurologic examination she does have minimal weakness in the right lower extremity. She has had a carotid ultrasound which did not show any flow-limiting stenosis. The patient is on aspirin. Recommend PT OT and rehab
[2017-05-22] MEDS: DONEPEZIL 5 MG TAB PO SCH (20:36)
[2017-05-22] MEDS: NYSTATIN 100,000 UNIT/GM POWD 15 GM TOPICAL SCH (20:38)
[2017-05-22 21:32] LABS: Glucose,Whole Blood 127 mg/dL (75-99)
--- NOTE | 2017-05-22 22:41 | EEG ---
ELECTROENCEPHALOGRAM REPORT DATE OF EE05/22/2017. REFERRING PHYSICIAN: Dr. Moon. CONSULTING AND INTERPRETING PHYSICIAN: Dr. Shirin Matthews. INDICATION FOR EXAMINATION: This patient is an 87-year-old female being evaluated for right-sided weakness and possible stroke. AGE: 87. EEG FINDINGS: A routine 21-channel awake digital EEG recording was accomplished utilizing the 10-20 international system with bipolar and referential montages. The background activity in the most alert resting state consists of a low to medium amplitude, poorly-developed and poorly-sustained 4-5 Hz activity over the posterior head regions. This posterior rhythm attenuates minimally to eye opening. There is a small amount of low amplitude 18-20 Hz beta activity seen maximally over the anterior head regions. Muscle and movement artifact was observed on a few occasions during the tracing. Hyperventilation was not performed. Photic stimulation and flash frequencies of 2-30 Hz produced a minimal occipital driving response. No epileptiform discharges were seen. IMPRESSION: This EEG gives evidence of a severe widespread diffuse disturbance in cerebral function. The EEG failed to reveal any focal, lateralized or epileptiform abnormalities. If clinically indicated, a followup EEG is recommended. Clinical correlation is recommended. MMODL / IJN: [id number] /
[2017-05-23 06:02] LABS: Glucose,Whole Blood 101 mg/dL (75-99)
[2017-05-23 07:02] LABS: Calcium 9.5 mg/dL (8.4-10.2); Potassium 3.6 mmol/L (3.5-5.1); Total Protein 4.7 g/dL (6.3-8.2)
[2017-05-23] MEDS: INSULIN LISPRO (humaLOG) 300 UNIT/3 ML VIAL SQ SCH ×4 (07:03→21:12)
[2017-05-23] MEDS: LEVOTHYROXINE 50 MCG TAB PO SCH (07:04)
[2017-05-23 07:13] LABS: Anisocytosis Slight; Basophils % (A) 0 %; CH 29.1; CHCM 30.9; Eosinophils # (A) 0.2 k/uL (0-0.7); Eosinophils % (A) 1 %; HDW 2.46; HGB 11.6 gm/dL (11.4-16.0); Hypochromasia Slight; Luc # (Auto) 0.14; Luc % (Auto) 1; Lymphocytes % (A) 8 %; MCH 28.9 pg (25.0-35.0); MCHC 30.6 g/dL (31.0-37.0); MCV 94.6 fL (80.0-100.0); Mean Platelet Volume 9.3; Monocytes # (A) 1.1 k/uL (0-1.0); Monocytes % (A) 9 %; Neutrophils # (A) 9.8 k/uL (1.3-7.7); Neutrophils % (A) 80 %; RBC 4.01 m/uL (3.80-5.40); RDW 19.5 % (11.5-15.5); WBC 12.3 k/uL (3.8-10.6); WBC (Perox) 13.04
[2017-05-23 08:17] LABS: Manual Review Performed; Target Cells Present
[2017-05-23] MEDS: AMIODARONE 200 MG TAB PO SCH (08:26)
[2017-05-23] MEDS: ASPIRIN 325 MG TAB PO SCH (08:26)
[2017-05-23] MEDS: FLUoxetine HCL 10 MG CAP PO SCH (08:26)
[2017-05-23] MEDS: PROPRANOLOL LA 60 MG CAP.SA.24H PO SCH ×2 (08:26→21:09)
[2017-05-23] MEDS: TOPIRAMATE 25 MG TAB PO SCH ×2 (08:26→21:09)
[2017-05-23] MEDS: NYSTATIN 100,000 UNIT/GM POWD 15 GM TOPICAL SCH ×2 (10:00→21:11)
[2017-05-23 11:44] LABS: Glucose,Whole Blood 120 mg/dL (75-99)
--- NOTE | 2017-05-23 13:10 | P.PN ---
Subjective Progress Note Date: 05/23/17 This is a 87-year-old female with past medical history noted below significant for prior CVAs who presented to the emergency room with worsening right-sided weakness. Patient is a very poor historian. According to her family she has been having progressive weakness over the past 6 months. Her functional status has been declining steadily. Yesterday they noted that she was having significant weakness on the right side of her body. She was getting up to walk with her walker and was leaning to the right side. 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 05/23/2017 patient reports still having some weakness in the right leg. She does not feel strong enough to go home yet. She was able to get out of bed with physical therapy. She denies any chest pain or shortness of breath. Denies any nausea or vomiting. Denies any bowel movement changes or urinary symptoms. She is slightly confused. Her heart rate on telemetry has been ranging from the 40s to 50s. Cardiology will be consulted. Objective - Vital Signs Vital signs: Vital Signs Temp 98.1 F 05/23/17 11:52 Pulse 52 L 05/23/17 11:52 Resp 18 05/23/17 11:52 BP 110/56 05/23/17 11:52 Pulse Ox 97 05/23/17 11:52 Intake & Output 05/22/17 05/23/17 05/23/17 18:59 06:59 18:59 Intake Total 920 10 120 Output Total 100 Balance 920 -90 120 Weight 85 kg Intake: IV 800 10 0.9% NS FLUSH 10 Sodium Chloride 0.9% 1, 800 000 ml @ 100 mls/hr IV . Q10H [facility] Rx#:[id number] Oral 120 120 Output: Urine 100 Other: Voiding Method Bedpan Bedside Commode Bedpan # Voids 3 1 1 # Bowel Movements 1 - Exam Head normocephalic Neck supple Lungs clear to auscultation bilaterally no wheezing or crackles Heart regular rate and rhythm S1-S2, no rub or gallop Abdomen is soft nontender nondistended positive bowel sounds no hepatosplenomegaly Extremities no edema Neuro alert answering questions properly. Slightly confused on some of the details. Hand director advertising is equal bilaterally lower extremity strength equal bilaterally. No facial droop or slurred speech. - Labs CBC & Chem 7: 10/20/17 06:19 05/23/17 06:19 Labs: Abnormal Lab Results - Last 24 Hours (Table) 05/22/17 05/22/17 05/23/17 Range/Units 16:43 21:19 06:00 WBC (3.8-10.6) k/uL MCHC (31.0-37.0) g/dL RDW (11.5-15.5) % Plt Count (150-450) k/uL Neutrophils # (1.3-7.7) k/uL Monocytes # (0-1.0) k/uL Sodium (137-145) mmol/L BUN (7-17) mg/dL Creatinine (0.52-1.04) mg/dL Glucose (74-99) mg/dL POC Glucose (mg/dL) 115 H 127 H 101 H (75-99) mg/dL AST (14-36) U/L Alkaline Phosphatase (38-126) U/L Total Protein (6.3-8.2) g/dL Albumin (3.5-5.0) g/dL HDL Cholesterol (40-60) mg/dL 05/23/17 05/23/17 05/23/17 Range/Units 06:19 06:19 11:39 WBC 12.3 H (3.8-10.6) k/uL MCHC 30.6 L (31.0-37.0) g/dL RDW 19.5 H (11.5-15.5) % Plt Count 99 L (150-450) k/uL Neutrophils # 9.8 H (1.3-7.7) k/uL Monocytes # 1.1 H (0-1.0) k/uL Sodium 136 L (137-145) mmol/L BUN 35 H (7-17) mg/dL Creatinine 1.90 H (0.52-1.04) mg/dL Glucose 109 H (74-99) mg/dL POC Glucose (mg/dL) 120 H (75-99) mg/dL AST 37 H (14-36) U/L Alkaline Phosphatase 140 H (38-126) U/L Total Protein 4.7 L (6.3-8.2) g/dL Albumin 2.2 L (3.5-5.0) g/dL HDL Cholesterol 37 L (40-60) mg/dL Microbiology - Last 24 Hours (Table) 05/21/17 15:36 Urine Culture - Final Urine,Voided Assessment and Plan Plan: 1. Right leg weakness: No evidence of new stroke on CAT scan of brain. 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 Echo with a normal EF no significant valvular changes. Carotid Doppler no significant hemodynamic stenosis. EEG shows no seizure activity but severe widespread diffuse disturbance in cerebral function. Neurology is following. Continue full aspirin. 2. 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 Uncomplicated urinary tract infection: continue Rocephin 4. Underlying dementia 5. Hypothyroidism 6. Physical debility 7. Sinus bradycardia: Heart rate in the 40s to 50s monitor. She is on a beta magali. We'll consult cardiology for further adjustment in medications 8. 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 Improving with IV fluids. IV fluids hep-locked yesterday. Continue to monitor Continue physical therapy. Encouraged to increase activity. I performed an examination of the patient and discussed their management with the physician [employer]. I have reviewed the Physician Inside [employer]'s notes and agree with the documented findings and plan of care
[2017-05-23] MEDS: MULTIVITAMINS, THERA 1 EACH TAB PO SCH (17:05)
[2017-05-23 17:26] LABS: Glucose,Whole Blood 105 mg/dL (75-99)
[2017-05-23 20:55] LABS: Glucose,Whole Blood 107 mg/dL (75-99)
[2017-05-23] MEDS: DONEPEZIL 5 MG TAB PO SCH (21:09)
[2017-05-24] MEDS: LEVOTHYROXINE 50 MCG TAB PO SCH (05:56)
[2017-05-24] MEDS: INSULIN LISPRO (humaLOG) 300 UNIT/3 ML VIAL SQ SCH ×4 (05:57→22:21)
[2017-05-24 05:58] LABS: Glucose,Whole Blood 88 mg/dL (75-99)
[2017-05-24 06:48] LABS: Calcium 9.3 mg/dL (8.4-10.2); Potassium 3.6 mmol/L (3.5-5.1); Total Protein 4.7 g/dL (6.3-8.2)
[2017-05-24 06:56] LABS: Anisocytosis Slight; Basophils # (A) 0.1 k/uL (0-0.2); Basophils % (A) 1 %; CH 28.9; CHCM 30.7; Eosinophils # (A) 0.2 k/uL (0-0.7); Eosinophils % (A) 2 %; HCT 37.4 % (34.0-46.0); HDW 2.43; HGB 11.3 gm/dL (11.4-16.0); Hypochromasia Slight; Luc # (Auto) 0.14; Luc % (Auto) 1; Lymphocytes # (A) 0.9 k/uL (1.0-4.8); Lymphocytes % (A) 10 %; MCH 28.6 pg (25.0-35.0); MCHC 30.3 g/dL (31.0-37.0); MCV 94.4 fL (80.0-100.0); Mean Platelet Volume 9.3; Monocytes # (A) 0.9 k/uL (0-1.0); Monocytes % (A) 9 %; Neutrophils # (A) 7.3 k/uL (1.3-7.7); Neutrophils % (A) 77 %; RBC 3.96 m/uL (3.80-5.40); RDW 19.3 % (11.5-15.5); WBC 9.5 k/uL (3.8-10.6); WBC (Perox) 9.44
[2017-05-24] MEDS: TOPIRAMATE 25 MG TAB PO SCH ×2 (08:59→19:59)
[2017-05-24] MEDS: FLUoxetine HCL 10 MG CAP PO SCH (08:59)
[2017-05-24] MEDS: PROPRANOLOL LA 60 MG CAP.SA.24H PO SCH (08:59)
[2017-05-24] MEDS: MULTIVITAMINS, THERA 1 EACH TAB PO SCH (08:59)
[2017-05-24] MEDS: ASPIRIN 325 MG TAB PO SCH (08:59)
[2017-05-24] MEDS: AMIODARONE 200 MG TAB PO SCH (09:00)
[2017-05-24] MEDS: NYSTATIN 100,000 UNIT/GM POWD 15 GM TOPICAL SCH ×2 (09:09→19:59)
--- NOTE | 2017-05-24 10:58 | P.PN ---
Subjective Progress Note Date: 05/24/17 This is a 87-year-old female with past medical history noted below significant for prior CVAs who presented to the emergency room with worsening right-sided weakness. Patient is a very poor historian. According to her family she has been having progressive weakness over the past 6 months. Her functional status has been declining steadily. Yesterday they noted that she was having significant weakness on the right side of her body. She was getting up to walk with her walker and was leaning to the right side. 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 05/23/2017 patient reports still having some weakness in the right leg. She does not feel strong enough to go home yet. She was able to get out of bed with physical therapy. She denies any chest pain or shortness of breath. Denies any nausea or vomiting. Denies any bowel movement changes or urinary symptoms. She is slightly confused. Her heart rate on telemetry has been ranging from the 40s to 50s. Cardiology will be consulted. on 05/24/2017 patient is alert and oriented, still having weakness in her right lower extremity also generalized weakness and able to sit up and stand up from the laying position by herself, otherwise she denies any complaints there is no fever or chills no headache or dizziness no chest pain no shortness of breath no nausea or vomiting no abdominal pain and no urinary symptoms. Patient will need admission to a long-term for rehabilitation prior to be able to go home due to her generalized weakness and right lower extremity weakness. Objective - Vital Signs Vital signs: Vital Signs Temp 98.0 F 05/24/17 04:00 Pulse 51 L 05/24/17 04:00 Resp 19 05/24/17 04:00 BP 123/59 05/24/17 04:00 Pulse Ox 93 L 05/24/17 04:00 Intake & Output 05/23/17 05/24/17 05/24/17 18:59 06:59 18:59 Intake Total 250 100 120 Output Total 300 300 Balance 250 -200 -180 Weight 84 kg Intake: Oral 250 100 120 Output: Urine 300 300 Other: Voiding Method Bedside Commode Bedpan # Voids 1 1 1 - Exam in general patient is alert and oriented in no apparent distress HEENT head normocephalic and atraumatic Neck is supple no JVD no goiter no lymphadenopathy Chest is clear to auscultation no crackles no wheezing Cardiac exam reveals irregular heart sounds no gallops no murmurs Abdomen is soft nontender no organomegaly Extremity exam reveals no edema no cyanosis or clubbing Neurological examination reveals generalized weakness with inability to stand up , right lower extremity is slightly weaker when compared to the left, otherwise no focal deficit - Labs CBC & Chem 7: 05/24/17 05:43 05/24/17 05:43 Labs: Abnormal Lab Results - Last 24 Hours (Table) 05/23/17 05/23/17 05/23/17 Range/Units 11:39 16:48 20:52 Hgb (11.4-16.0) gm/dL MCHC (31.0-37.0) g/dL RDW (11.5-15.5) % Plt Count (150-450) k/uL Lymphocytes # (1.0-4.8) k/uL BUN (7-17) mg/dL Creatinine (0.52-1.04) mg/dL POC Glucose (mg/dL) 120 H 105 H 107 H (75-99) mg/dL AST (14-36) U/L Alkaline Phosphatase (38-126) U/L Total Protein (6.3-8.2) g/dL Albumin (3.5-5.0) g/dL 05/24/17 05/24/17 Range/Units 05:43 05:43 Hgb 11.3 L (11.4-16.0) gm/dL MCHC 30.3 L (31.0-37.0) g/dL RDW 19.3 H (11.5-15.5) % Plt Count 100 L (150-450) k/uL Lymphocytes # 0.9 L (1.0-4.8) k/uL BUN 34 H (7-17) mg/dL Creatinine 1.76 H (0.52-1.04) mg/dL POC Glucose (mg/dL) (75-99) mg/dL AST 40 H (14-36) U/L Alkaline Phosphatase 139 H (38-126) U/L Total Protein 4.7 L (6.3-8.2) g/dL Albumin 2.1 L (3.5-5.0) g/dL Assessment and Plan Plan: 1. Right leg weakness: No evidence of new stroke on CAT scan of brain. 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 Echo with a normal EF no significant valvular changes. Carotid Doppler no significant hemodynamic stenosis. EEG shows no seizure activity but severe widespread diffuse disturbance in cerebral function. Neurology is following. Continue full aspirin. patient unable to stand up on her own she will need admission to a long-term on Friday for rehab, this was discussed was patient and her son today. Continue physical therapy this time. 2. 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 urinary tract infection with sepsis, patient had leukocytosis and elevated lactic acid on presentation she is improving 4. Underlying dementia 5. Hypothyroidism 6. Physical debility 7. Sinus bradycardia: Heart rate in the 40s to 50s monitor. She is on a beta magali. We'll consult cardiology for further adjustment in medications 8. 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 Improving with IV fluids. IV fluids hep-locked yesterday. Continue to monitor
[2017-05-24 11:23] LABS: Glucose,Whole Blood 122 mg/dL (75-99)
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
[2017-05-24 16:44] LABS: Glucose,Whole Blood 115 mg/dL (75-99)
[2017-05-24] MEDS: DONEPEZIL 5 MG TAB PO SCH (19:59)
[2017-05-24 20:56] LABS: Glucose,Whole Blood 114 mg/dL (75-99)
[2017-05-25] MEDS: LEVOTHYROXINE 50 MCG TAB PO SCH (05:54)
[2017-05-25 06:06] LABS: Glucose,Whole Blood 98 mg/dL (75-99)
[2017-05-25 06:23] LABS: Anisocytosis Slight; Basophils % (A) 1 %; CH 29.1; CHCM 30.7; Eosinophils # (A) 0.3 k/uL (0-0.7); Eosinophils % (A) 3 %; HCT 40.1 % (34.0-46.0); HDW 2.48; HGB 12.2 gm/dL (11.4-16.0); Hypochromasia Slight; Luc # (Auto) 0.17; Luc % (Auto) 2; Lymphocytes # (A) 0.9 k/uL (1.0-4.8); Lymphocytes % (A) 10 %; MCH 28.9 pg (25.0-35.0); MCHC 30.3 g/dL (31.0-37.0); MCV 95.4 fL (80.0-100.0); Macrocytosis Slight; Mean Platelet Volume 8.8; Monocytes # (A) 1.1 k/uL (0-1.0); Monocytes % (A) 12 %; Neutrophils # (A) 6.8 k/uL (1.3-7.7); Neutrophils % (A) 73 %; RDW 19.1 % (11.5-15.5); WBC 9.3 k/uL (3.8-10.6); WBC (Perox) 8.75
[2017-05-25] MEDS: INSULIN LISPRO (humaLOG) 300 UNIT/3 ML VIAL SQ SCH ×4 (06:27→21:20)
[2017-05-25 06:44] LABS: Calcium 9.4 mg/dL (8.4-10.2); Potassium 3.8 mmol/L (3.5-5.1); Total Bilirubin 1.1 mg/dL (0.2-1.3); Total Protein 4.9 g/dL (6.3-8.2)
[2017-05-25] MEDS: FLUoxetine HCL 10 MG CAP PO SCH (08:06)
[2017-05-25] MEDS: PROPRANOLOL LA 60 MG CAP.SA.24H PO SCH (08:07)
[2017-05-25] MEDS: ASPIRIN 325 MG TAB PO SCH (08:07)
[2017-05-25] MEDS: AMIODARONE 200 MG TAB PO SCH (08:07)
[2017-05-25] MEDS: TOPIRAMATE 25 MG TAB PO SCH ×2 (08:07→20:24)
[2017-05-25] MEDS: NYSTATIN 100,000 UNIT/GM POWD 15 GM TOPICAL SCH ×2 (08:08→20:25)
[2017-05-25] MEDS: MULTIVITAMINS, THERA 1 EACH TAB PO SCH (08:11)
[2017-05-25 08:20] VITALS: RESP 16
--- NOTE | 2017-05-25 10:25 | P.PN ---
Subjective This is a 87-year-old female with past medical history noted below significant for prior CVAs who presented to the emergency room with worsening right-sided weakness. Patient is a very poor historian. According to her family she has been having progressive weakness over the past 6 months. Her functional status has been declining steadily. Yesterday they noted that she was having significant weakness on the right side of her body. She was getting up to walk with her walker and was leaning to the right side. 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 05/23/2017 patient reports still having some weakness in the right leg. She does not feel strong enough to go home yet. She was able to get out of bed with physical therapy. She denies any chest pain or shortness of breath. Denies any nausea or vomiting. Denies any bowel movement changes or urinary symptoms. She is slightly confused. Her heart rate on telemetry has been ranging from the 40s to 50s. Cardiology will be consulted. on 05/24/2017 patient is alert and oriented, still having weakness in her right lower extremity also generalized weakness and able to sit up and stand up from the laying position by herself, otherwise she denies any complaints there is no fever or chills no headache or dizziness no chest pain no shortness of breath no nausea or vomiting no abdominal pain and no urinary symptoms. Patient will need admission to a longterm for rehabilitation prior to be able to go home due to her generalized weakness and right lower extremity weakness. On 05/25/2017 patient was seen and examined she is alert and oriented she is still having significant weakness, and is and able to stand on her own. Cardiology recommendation reviewed and discussed was Dr. Thomas over the phone patient is felt to be at high risk of repeat stroke and recommendation were to discontinue aspirin and restart adequate set 2.5 mg twice daily Objective - Vital Signs Vital signs: Vital Signs Temp 97.9 F 05/25/17 08:00 Pulse 53 L 05/25/17 08:00 Resp 16 05/25/17 08:00 BP 118/58 05/25/17 08:00 Pulse Ox 95 05/25/17 08:00 Intake & Output 05/24/17 05/25/17 05/25/17 18:59 06:59 18:59 Intake Total 360 150 120 Output Total 1300 700 Balance -940 -550 120 Weight 83.9 kg Intake: Oral 360 150 120 Output: Urine 1300 700 Other: Voiding Method Bedside Commode Bedside Commode Bedpan Bedpan # Voids 1 1 - Exam in general patient is alert and oriented in no apparent distress HEENT head normocephalic and atraumatic Neck is supple no JVD no goiter no lymphadenopathy Chest is clear to auscultation no crackles no wheezing Cardiac exam reveals irregular heart sounds no gallops no murmurs Abdomen is soft nontender no organomegaly Extremity exam reveals no edema no cyanosis or clubbing Neurological examination reveals generalized weakness with inability to stand up , right lower extremity is slightly weaker when compared to the left, otherwise no focal deficit - Labs CBC & Chem 7: 05/25/17 06:05 05/25/17 06:00 Labs: Abnormal Lab Results - Last 24 Hours (Table) 05/24/17 05/24/17 05/24/17 Range/Units 11:21 16:27 20:54 MCHC (31.0-37.0) g/dL RDW (11.5-15.5) % Plt Count (150-450) k/uL Lymphocytes # (1.0-4.8) k/uL Monocytes # (0-1.0) k/uL Sodium (137-145) mmol/L BUN (7-17) mg/dL Creatinine (0.52-1.04) mg/dL Glucose (74-99) mg/dL POC Glucose (mg/dL) 122 H 115 H 114 H (75-99) mg/dL AST (14-36) U/L Alkaline Phosphatase (38-126) U/L Total Protein (6.3-8.2) g/dL Albumin (3.5-5.0) g/dL 05/25/17 05/25/17 Range/Units 06:00 06:05 MCHC 30.3 L (31.0-37.0) g/dL RDW 19.1 H (11.5-15.5) % Plt Count 132 L (150-450) k/uL Lymphocytes # 0.9 L (1.0-4.8) k/uL Monocytes # 1.1 H (0-1.0) k/uL Sodium 136 L (137-145) mmol/L BUN 32 H (7-17) mg/dL Creatinine 1.70 H (0.52-1.04) mg/dL Glucose 103 H (74-99) mg/dL POC Glucose (mg/dL) (75-99) mg/dL AST 48 H (14-36) U/L Alkaline Phosphatase 191 H (38-126) U/L Total Protein 4.9 L (6.3-8.2) g/dL Albumin 2.2 L (3.5-5.0) g/dL Assessment and Plan Plan: 1. Right leg weakness: No evidence of new stroke on CAT scan of brain. 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 Echo with a normal EF no significant valvular changes. Carotid Doppler no significant hemodynamic stenosis. EEG shows no seizure activity but severe widespread diffuse disturbance in cerebral function. Neurology is following. Cardiology recommending to stop aspirin and restart Eliquis at 2.5 mg twice daily despite previous history of gastrointestinal bleeding due to patient high risk of having a stroke again. patient unable to stand up on her own she will need admission to a longterm on Friday for rehab, this was discussed was patient and her son today. Continue physical therapy this time. 2. 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 urinary tract infection with sepsis, patient had leukocytosis and elevated lactic acid on presentation she is improving 4. Underlying dementia 5. Hypothyroidism 6. Physical debility 7. Sinus bradycardia: Heart rate in the 40s to 50s monitor. She is on a beta magali. We'll consult cardiology for further adjustment in medications 8. 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 Improving with IV fluids. IV fluids hep-locked yesterday. Continue to monitor
[2017-05-25 11:30] LABS: Glucose,Whole Blood 135 mg/dL (75-99)
--- NOTE | 2017-05-25 15:53 | PN ---
PROGRESS NOTE This patient was admitted with weakness suggestive for TIA. She is doing better. Denies any chest pain, no shortness of breath. The patient's heart rate is 50 to 60 per minute, blood pressure is 134/64 mmHg. First and second heart sounds are normal. Lungs are clinically clear to auscultation and percussion. The patient was started on apixaban 2.5 mg b.i.d. and we will continue to watch for any symptomatic bradyarrhythmia. MMODL / IJN: [id number] /
[2017-05-25 16:49] LABS: Glucose,Whole Blood 146 mg/dL (75-99)
[2017-05-25] MEDS: APIXABAN 2.5 MG TABLET PO SCH (20:24)
[2017-05-25] MEDS: DONEPEZIL 5 MG TAB PO SCH (20:24)
[2017-05-25 20:53] LABS: Glucose,Whole Blood 117 mg/dL (75-99)
[2017-05-26 06:01] LABS: Glucose,Whole Blood 110 mg/dL (75-99)
[2017-05-26 06:32] LABS: Anisocytosis Moderate; Basophils # (A) 0.1 k/uL (0-0.2); Basophils % (A) 1 %; CH 30.1; CHCM 31.4; Eosinophils # (A) 0.2 k/uL (0-0.7); Eosinophils % (A) 3 %; HCT 41.4 % (34.0-46.0); HDW 2.52; HGB 12.3 gm/dL (11.4-16.0); Hypochromasia Slight; Luc # (Auto) 0.19; Luc % (Auto) 2; Lymphocytes # (A) 0.8 k/uL (1.0-4.8); Lymphocytes % (A) 10 %; MCH 28.9 pg (25.0-35.0); MCHC 29.8 g/dL (31.0-37.0); MCV 96.9 fL (80.0-100.0); Macrocytosis Slight; Mean Platelet Volume 9.3; Monocytes # (A) 0.9 k/uL (0-1.0); Monocytes % (A) 11 %; Neutrophils # (A) 6.1 k/uL (1.3-7.7); Neutrophils % (A) 74 %; RBC 4.27 m/uL (3.80-5.40); RDW 20.6 % (11.5-15.5); WBC 8.3 k/uL (3.8-10.6); WBC (Perox) 8.56
[2017-05-26] MEDS: LEVOTHYROXINE 50 MCG TAB PO SCH (06:38)
[2017-05-26] MEDS: INSULIN LISPRO (humaLOG) 300 UNIT/3 ML VIAL SQ SCH ×3 (06:39→16:39)
[2017-05-26 06:53] LABS: Calcium 9.3 mg/dL (8.4-10.2); Potassium 3.7 mmol/L (3.5-5.1); Total Protein 4.9 g/dL (6.3-8.2)
[2017-05-26 06:59] VITALS: TEMP 97.4
[2017-05-26] MEDS: TOPIRAMATE 25 MG TAB PO SCH (08:16)
[2017-05-26] MEDS: MULTIVITAMINS, THERA 1 EACH TAB PO SCH (08:16)
[2017-05-26] MEDS: NYSTATIN 100,000 UNIT/GM POWD 15 GM TOPICAL SCH (08:16)
[2017-05-26] MEDS: FLUoxetine HCL 10 MG CAP PO SCH (08:16)
[2017-05-26] MEDS: APIXABAN 2.5 MG TABLET PO SCH (08:26)
[2017-05-26] MEDS ORDERED: AMIODARONE 100 MG TAB PO SCH (09:00)
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
[2017-05-26 11:46] LABS: Glucose,Whole Blood 107 mg/dL (75-99)
[2017-05-26] MEDS: PROPRANOLOL LA 60 MG CAP.SA.24H PO SCH (12:00)
[2017-05-26 14:10] VITALS: BP 153/68; PULSE 50
--- NOTE | 2017-05-26 15:33 | P.PN ---
Subjective Progress Note Date: 05/26/17 Principal diagnosis: Bradycardia 6 is an 87-year-old female admitted to the hospital with weakness and suggestion of TIA. Patient was also noted to be bradycardic and her dose of calcium channel magali had been decreased. Patient was seen and examined today , heart rate remains in the low 50s. We will discontinue the Isoptin completely. Continue Eliquis 2-1/2 mg one tablet by mouth twice a day. Objective - Vital Signs Vital signs: Vital Signs Temp 97.4 F L 05/26/17 04:00 Pulse 50 L 05/26/17 14:08 Resp 16 05/26/17 14:08 BP 153/68 05/26/17 14:08 Pulse Ox 95 05/26/17 14:08 Intake & Output 05/25/17 05/26/17 05/26/17 18:59 06:59 18:59 Intake Total 360 220 Output Total 700 350 350 Balance -340 -350 -130 Weight 84.3 kg Intake: Oral 360 220 Output: Urine 700 350 350 Other: Voiding Method Bedside Commode Bedside Commode Bedside Commode Bedpan # Voids 2 1 0 # Bowel Movements 1 0 - Exam PHYSICAL EXAMINATION: HEENT: Head is atraumatic, normocephalic. Pupils equal, round. Neck is supple. There is no elevated jugular venous pressure. HEART EXAMINATION: Heart S1 and S2 systolic murmur is heard. CHEST EXAMINATION: Lungs are clear to auscultation and precussion. No chest wall tenderness is noted on palpation or with deep breathing. ABDOMEN: Soft, nontender. Bowel sounds are heard. No organomegaly noted. EXTREMITIES:[ 2+ peripheral pulses with no evidence of peripheral edema and no calf tenderness noted]. NEUROLOGIC [patient is awake, alert and oriented -3.] Right sided weakness noted. . - Labs CBC & Chem 7: 05/26/17 06:14 05/26/17 06:14 Labs: Abnormal Lab Results - Last 24 Hours (Table) 05/25/17 05/25/17 05/26/17 Range/Units 16:32 20:50 05:59 MCHC (31.0-37.0) g/dL RDW (11.5-15.5) % Plt Count (150-450) k/uL Lymphocytes # (1.0-4.8) k/uL BUN (7-17) mg/dL Creatinine (0.52-1.04) mg/dL Glucose (74-99) mg/dL POC Glucose (mg/dL) 146 H 117 H 110 H (75-99) mg/dL AST (14-36) U/L Alkaline Phosphatase (38-126) U/L Total Protein (6.3-8.2) g/dL Albumin (3.5-5.0) g/dL 05/26/17 05/26/17 05/26/17 Range/Units 06:14 06:14 11:42 MCHC 29.8 L (31.0-37.0) g/dL RDW 20.6 H (11.5-15.5) % Plt Count 116 L (150-450) k/uL Lymphocytes # 0.8 L (1.0-4.8) k/uL BUN 29 H (7-17) mg/dL Creatinine 1.64 H (0.52-1.04) mg/dL Glucose 112 H (74-99) mg/dL POC Glucose (mg/dL) 107 H (75-99) mg/dL AST 55 H (14-36) U/L Alkaline Phosphatase 191 H (38-126) U/L Total Protein 4.9 L (6.3-8.2) g/dL Albumin 2.2 L (3.5-5.0) g/dL Assessment and Plan Plan: Assessment and plan #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 Continue Eliquis 2-1/ 2 mg one tablet by mouth twice a day, no aspirin, once patient is discharged home from the hospital we will make a follow-up appointment in the office post discharge. DNP note has been reviewed, I agree with a documented findings and plan of care. Patient was seen and examined.
[2017-05-26 16:37] LABS: Glucose,Whole Blood 111 mg/dL (75-99)
== END 2017-05-26 17:40 | DRG 872 ==
LOC: EC 12:11 → 6SEL 14:48
PROVIDERS: ADMIT Internal Medicine; ATTEND Internal Medicine
DX: A41.9 Sepsis, unspecified organism (principal); N18.4 Chronic kidney disease, stage 4 (severe); N17.9 Acute kidney failure, unspecified; N39.0 Urinary tract infection, site not specified; E11.22 Type 2 diabetes mellitus with diabetic chronic kidney disease; I48.0 Paroxysmal atrial fibrillation; I08.3 Combined rheumatic disorders of mitral, aortic and tricuspid valves; E86.0 Dehydration; F03.90 Unspecified dementia, unspecified severity, without behavioral disturbance, psychotic disturbance, mood disturbance, and anxiety; R00.1 Bradycardia, unspecified; I12.9 Hypertensive chronic kidney disease with stage 1 through stage 4 chronic kidney disease, or unspecified chronic kidney disease; F32.9 Major depressive disorder, single episode, unspecified; E03.9 Hypothyroidism, unspecified; R53.1 Weakness; E78.5 Hyperlipidemia, unspecified; I25.10 Atherosclerotic heart disease of native coronary artery without angina pectoris; K57.90 Diverticulosis of intestine, part unspecified, without perforation or abscess without bleeding; H91.90 Unspecified hearing loss, unspecified ear; Z79.84 Long term (current) use of oral hypoglycemic drugs; Z79.82 Long term (current) use of aspirin; Z79.899 Other long term (current) drug therapy; Z87.891 Personal history of nicotine dependence; Z82.49 Family history of ischemic heart disease and other diseases of the circulatory system; W19.XXXA Unspecified fall, initial encounter; Y92.9 Unspecified place or not applicable
CPT/HCPCS: 36415; 70450; 71020; 80048; 80053; 80061; 81001; 82550; 82553; 83036; 83605; 83735; 84100; 84443; 84484; 85025; 85610; 85730; 87086; 93005; 93306; 93880; 94760; 95819; 96365; 96366; 99285